=== PATIENT | male | born 1985 | race Caucasian/White ===

== ENCOUNTER 2018-04-17 23:14 | Emergency (ER) | payer BC ==
[2018-04-17] MEDS ORDERED: Adacel (T-DAP) 0.5 ML VIAL ONE (23:24)
[2018-04-17 23:47] LABS: #Basophils 0.1 thou/uL (0.0-0.2); #Eosinphils 0.4 thou/uL (0.0-0.7); #Lymphocytes 3.9 thou/uL (1.20-3.40); #Monocytes 0.8 thou/uL (0.11-0.59); %Basophils 0.9 % (0.0-1.0); %Eosinophils 2.8 % (0.0-10.0); %Lymphocytes 25.6 % (21.0-51.0); %Monocytes 5.4 % (0.0-10.0); %Neutrophils 65.4 % (42.0-75.0); Hemoglobin 17.4 g/dL (14.0-18.0); Mean Corpuscular HGB CONC 34.3 g/dL (32.0-36.0); Mean Corpuscular Hemoglobin 32.8 pg (27.0-31.0); Mean Corpuscular Volume 95.6 fl (80.0-94.0); Mean Platelet Volume 6.1 fL (7.4-10.4); Platelet Count 312 thou/uL (130-400); RBC Distribution Width 12.5 % (11.5-14.5); Red Blood Cell (RBC) Count 5.32 mill/uL (4.70-6.10); White Blood Cell (WBC) Count 15.3 thou/uL (4.8-10.8)
[2018-04-17] MEDS ORDERED: Lidocaine 1% w/Epinephrine 1:100K 20 ML VIAL ONE ×2 (23:53→23:56)
[2018-04-17] MEDS ORDERED: Morphine 4 MG/ML VIAL ONE (23:54)
[2018-04-18 00:02] LABS: Acetaminophen Less than 6.0 mcg/mL (10.0-30.0); Alcohol 343 mg/dL (Less than 10); Salicylate Less than 8.0 mg/dL (15.0-30.0)
[2018-04-18] MEDS ORDERED: CEFAZOLIN/Water 2 GM/20 ML SYRINGE ONE (00:06)
[2018-04-18 00:28] LABS: ALT (SGPT) 35 U/L (8-55); AST (SGOT) 34 U/L (5-34); Albumin 4.2 g/dL (3.5-5.0); Alkaline Phosphatase 67 U/L (40-150); Anion Gap 20 mmol/L (10-20); BUN (Urea Nitrogen) 9 mg/dL (8.9-20.6); Bilirubin, Total 0.4 mg/dL (0.2-1.2); Calc. Creatinine Clearance 0 mL/min (70-130); Calcium 8.8 mg/dL (7.8-10.44); Carbon Dioxide 17 mmol/L (22-29); Chloride 104 mmol/L (98-107); Estimated GFR-MDRD 80; Globulin 3.1 g/dL (2.4-3.5); Glucose 116 mg/dL (70-105); Potassium 4.3 mmol/L (3.5-5.1); Protein, Total 7.3 g/dL (6.0-8.3); Sodium 137 mmol/L (136-145)
[2018-04-18 00:36] LABS: Bilirubin Negative (Negative); Blood, Urine Negative (Negative); Clarity CLEAR (Clear); Glucose, Urine (Dipstick) Negative (Negative); Leukocyte Negative (Negative); Nitrite Negative (Negative); Protein, Urine (Dipstick) Trace mg/dL (Neg-Trace); Specific Gravity, Urine 1.008 (1.002-1.036); Urobilinogen 0.2 mg/dL (0.2-1.0); pH, Urine 5.5 (5.0-9.0)
[2018-04-18 00:45] LABS: Amphetamine Not Detected (NotDetected); Barbiturates Screen Not Detected (NotDetected); Benzodiazepine Screen Not Detected (NotDetected); Cocaine Metabolite Screen Not Detected (NotDetected); Medtox Control Line Valid? VALID (VALID); Medtox Reader # READER 4; Methadone Not Detected (NotDetected); Methamphetamine Not Detected (NotDetected); Opiate Screen Detected (NotDetected); Oxycodone Screen Not Detected (NotDetected); Phencyclidine (PCP) Not Detected (NotDetected); THC/Cannabinoid Screen Detected (NotDetected); Tricyclic Screen Not Detected (NotDetected)
[2018-04-18] MEDS ORDERED: Morphine 4 MG/ML VIAL ONE (02:45)
--- NOTE | 2018-04-18 07:40 | RAD ---
RIGHT FOREARM TWO VIEWS: Clinical history: Post-traumatic injury. Fall. FINDINGS: Soft tissue irregularity related to laceration present at the forearm. No underlying displaced fractu re of the radius or ulna is identified. Overlying tubing from IV is present, limiting detail. IMPRESSION: No acute fracture of the right forearm visualized. There is soft tissue laceration. POS: [facility]
--- NOTE | 2018-04-18 07:42 | RAD ---
THREE VIEW RIGHT HAND: Indication: Injury and pain related to fall. FINDINGS: There is no fracture or dislocation of the right hand. No radiopaque foreign body identified. There i s soft tissue prominence. IMPRESSION: No acute osseous abnormality right hand. POS: [facility]
--- NOTE | 2018-04-18 07:42 | RAD ---
LEFT HUMERUS TWO VIEWS: Indication: Injury, pain related to fall. FINDINGS: There is no fracture or dislocation of the left humerus. No radiopaque foreign body visualized. IMPRESSION: No acute osseous abnormality left humerus. POS: [facility]
== END 2018-04-18 04:19 | disposition home or self-care (01) ==
LOC: ERS 23:14
DX: S51.811A Laceration without foreign body of right forearm, initial encounter (principal); S46.222A Laceration of muscle, fascia and tendon of other parts of biceps, left arm, initial encounter; F10.129 Alcohol abuse with intoxication, unspecified; Y90.8 Blood alcohol level of 240 mg/100 ml or more; K21.9 Gastro-esophageal reflux disease without esophagitis; Z23 Encounter for immunization; F17.210 Nicotine dependence, cigarettes, uncomplicated; W17.89XA Other fall from one level to another, initial encounter
CPT/HCPCS: 12006; 80053; 80306; 80307; 81003; 85025; 90471; 90715; 93005; 96374; 96375; J2001; J2270

== ENCOUNTER 2020-01-23 23:41 | Emergency (ER) | payer BC ==
[2020-01-24] MEDS ORDERED: Lidocaine 1% (PF) 30 ML VIAL ONE (00:07)
[2020-01-24] MEDS ORDERED: Bupivacaine 0.5% 10 ML VIAL ONE (00:07)
[2020-01-24] MEDS ORDERED: HYDROcodone/Acetaminophen 5/325 mg Tablet ONE (00:41)
== END 2020-01-24 01:59 | disposition home or self-care (01) ==
LOC: ERS 23:41
DX: S41.151A Open bite of right upper arm, initial encounter (principal); S41.152A Open bite of left upper arm, initial encounter; F17.210 Nicotine dependence, cigarettes, uncomplicated; K21.9 Gastro-esophageal reflux disease without esophagitis; I10 Essential (primary) hypertension; W54.0XXA Bitten by dog, initial encounter
CPT/HCPCS: 12005; J2001; J3490